=== PATIENT | male | born 1945 | race Caucasian/White ===

== ENCOUNTER 2017-11-04 12:15 | Emergency (ER) | payer MEDICARE ==
[2017-11-04 12:41] LABS: #Lymphocytes 1.3 thou/uL (1.20-3.40); #Monocytes 0.7 thou/uL (0.11-0.59); #Neutrophils 7.6 thou/uL (1.40-6.50); %Basophils 0.5 % (0.0-1.0); %Eosinophils 0.4 % (0.0-10.0); %Lymphocytes 13.2 % (21.0-51.0); Hemoglobin 13.8 g/dL (14.0-18.0); Mean Corpuscular HGB CONC 33.3 g/dL (32.0-36.0); Mean Corpuscular Hemoglobin 30.5 pg (27.0-31.0); Mean Corpuscular Volume 91.7 fl (80.0-94.0); Mean Platelet Volume 7.9 fL (7.4-10.4); Platelet Count 205 thou/uL (130-400); RBC Distribution Width 12.1 % (11.5-14.5); Red Blood Cell (RBC) Count 4.54 mill/uL (4.70-6.10); White Blood Cell (WBC) Count 9.6 thou/uL (4.8-10.8)
[2017-11-04] MEDS ORDERED: Ondansetron HCl/PF 4 MG/2 ML Vial ONE (12:53)
[2017-11-04 13:06] LABS: ALT (SGPT) 14 U/L (8-55); AST (SGOT) 12 U/L (5-34); Albumin 4.4 g/dL (3.4-4.8); Alkaline Phosphatase 68 U/L (40-150); Anion Gap 13 mmol/L (10-20); BUN (Urea Nitrogen) 25 mg/dL (8.4-25.7); Bilirubin, Total 0.3 mg/dL (0.2-1.2); CK (CPK) 66 U/L (30-200); Calc. Creatinine Clearance 0 mL/min (70-130); Calcium 10.3 mg/dL (7.8-10.44); Carbon Dioxide 18 mmol/L (23-31); Chloride 110 mmol/L (98-107); Estimated GFR-MDRD 65; Globulin 3.3 g/dL (2.4-3.5); Glucose 209 mg/dL (80-115); Lipase 27 U/L (8-78); Potassium 4.2 mmol/L (3.5-5.1); Protein, Total 7.7 g/dL (5.8-8.1); Sodium 137 mmol/L (136-145); Troponin I Less than 0.010 ng/mL (< 0.028)
[2017-11-04 13:14] LABS: Clarity Turbid (Clear); Specific Gravity, Urine 1.015 (1.005-1.030)
[2017-11-04 13:15] LABS: Bilirubin Negative (Negative); Blood, Urine Moderate (Negative); Glucose, Urine (Dipstick) Negative (Negative); Leukocyte Large (Negative); Nitrite Positive (Negative); Protein, Urine (Dipstick) 100 mg/dL (Neg-Trace); Urobilinogen 0.2 mg/dL (0.2-1.0)
[2017-11-04 13:21] LABS: Bacteria/HPF 3+ HPF (None Seen); Hyaline Casts/LPF NONE SEEN LPF (0-3 Hyaline); Squamous Epithelial 0-3 HPF (0-3)
--- NOTE | 2017-11-04 14:01 | ULT ---
RIGHT UPPER QUADRANT ULTRASOUND: Date: 11/04/17 HISTORY: Nausea and vomiting. FINDINGS: The liver demonstrates homogeneous echotexture without focal mass or intrahepatic ductal dilatation. No gallstones, gallbladder wall thickening, or pericholecystic fluid is seen. The common duct measure s 4.0 mm in diameter. The pancreas is not well visualized due to overlying bowel gas. The right kidne y measures 12.2 cm in length with mild hydronephrosis. No free fluid is seen in Morison's pouch. IMPRESSION: 1. No evidence of cholelithiasis. 2. Mild right-sided hydronephrosis. POS: [facility]
--- NOTE | 2017-11-04 14:59 | CT ---
CT ABDOMEN AND PELVIS NONCONTRAST: Date: 11/04/17 HISTORY: Flank pain. FINDINGS: No comparison. Severe distention of the left renal collecting system and moderate distention of the proximal to mid ureter is apparent with thickening of the proximal ureteral wall and subtle stranding of the adjacent fat. Distal ureter is decompressed and not well visualized or localized. There is moderate to severe distention of the right renal collecting system and UPJ. The right ureter is again moderately disten ded. Posterior and superior to the urinary bladder is a large, lobular fluid collection apparently co nnected to the bladder. It measures up to 6.6 cm width x 4.4 cm depth x 2.4 cm length. Other lobulati ons projecting from the right side of the urinary bladder have the appearance of diverticula. No stones are visible within the urinary system. Lack of contrast limits evaluation for other abnormalities. Emphysematous changes are apparent at the lung bases. Calcification within the arterial structures. Postoperative changes of the bowel are yessica arent. Hemostasis clips are noted at the dependent portion of the pelvis. IMPRESSION: 1. Bilateral hydroureteronephrosis with nonvisualization of the presumably decompressed distal urete rs. Point of transition of caliber of the ureters is not evident. No stones are visible. Abnormality of the urinary bladder may be related to prior surgery or extensive diverticula from urinary bladder outlet obstruction. Please consider urologic evaluation. 2. Stranding adjacent to the left kidney and proximal left ureter may reflect inflammatory process o r be related to the obstruction. Clinical correlation regarding other signs and symptoms of left pyel onephritis is required. 3. Atherosclerosis. POS: [facility]
== END 2017-11-04 14:42 ==
LOC: ERS 12:15
DX: R10.11 Right upper quadrant pain (principal); R10.31 Right lower quadrant pain; R11.2 Nausea with vomiting, unspecified; E11.9 Type 2 diabetes mellitus without complications; J45.909 Unspecified asthma, uncomplicated; Z85.51 Personal history of malignant neoplasm of bladder
CPT/HCPCS: 36415; 74176; 76705; 80053; 81003; 81015; 82550; 82553; 83690; 84484; 85025; 87040; 87077; 87086; 87186; 93005; 96361; 96374; 96375; 96376; J0696; J2270; J2405

== ENCOUNTER 2018-03-07 10:09 | Outpatient (CLI) | payer MEDICARE ==
--- NOTE | 2018-03-07 14:34 | NM ---
RADIONUCLIDE DIURETIC RENOGRAM: HISTORY: Hydronephrosis. RADIOPHARMACEUTICAL: 8 mCi Technetium 99m-MAG3 injected intravenously. DIURETIC: 40 mg IV Lasix administered 15 minutes prior to the administration of the radiopharmaceutical. FINDINGS: There is slow and decreased uptake by the left kidney compared to the right. Tracer excretion is not ed in the ureters bilaterally and the urinary bladder at slower tracer excretion on the left compared to the right. The differential function measures 62% on the right and 38% on the left. IMPRESSION: 1. No evidence of high-grade obstruction. 2. Decreased flow and function of the left kidney compared to the right. POS: [facility]
== END 2018-03-07 10:10 | disposition home or self-care (01) ==
LOC: NM 10:09
PROVIDERS: ATTEND Urology
DX: N13.39 Other hydronephrosis (principal); R94.4 Abnormal results of kidney function studies
CPT/HCPCS: 78708; A4641; A9562

== ENCOUNTER 2018-06-19 11:02 | Outpatient (CLI) | payer MEDICARE ==
--- NOTE | 2018-06-19 13:24 | RAD ---
CHEST TWO VIEWS: History: Bladder cancer. FINDINGS: Heart size is within normal limits. There are atherosclerotic changes of the aorta. Lungs are clear o f any infiltrative process. There is linear scarring present. Bones appear slightly demineralized. Th ere are arthritic changes of the spine. No pulmonary nodules. IMPRESSION: No active intrathoracic disease. POS: [facility]
--- NOTE | 2018-06-19 13:27 | CT ---
CT OF ABDOMEN AND PELVIS PERFORMED WITHOUT CONTRAST ENHANCEMENT: HISTORY: History of bladder cancer. Bilateral flank pain. COMPARISON: A 11/04/2017 study. FINDINGS: The lung bases show some linear change within the left base consistent with some scar. No pulmonary nodules. The liver, spleen, pancreas, and gallbladder regions appear unremarkable given the limitations of a n oncontrast study. Right and left adrenal glands are normal in appearance. Right and left kidneys ar e normal in size. There is some mild left-sided hydronephrosis significantly improved as compared to the prior examination. There is very minimal dilatation of the right collecting system. On the lef t side, there is some periureteral fat stranding along the proximal left ureter. The course of the u reter is difficult to follow but appears to have crossed at the right of midline and what appear to b e changes related to neobladder. I do not see any evidence for any type of obstructing calculus. Th ere is no significant periaortic or mesenteric adenopathy. CT OF PELVIS PERFORMED WITHOUT CONTRAST ENHANCEMENT: Postoperative changes in the bladder region are noted. No adenopathy, mass, or free fluid. IMPRESSION: Mild to moderate left-sided hydronephrosis with minimal dilatation of the right collecting system. T he left ureter is slightly dilated proximally. It appears to cross to the right of midline related t o postop change. I do not see any signs of any ureteral calculus. The degree of dilatation is signi ficantly improved as compared to the previous study. POS: [facility]
== END 2018-06-19 11:03 | disposition home or self-care (01) ==
LOC: BICCT 11:02
PROVIDERS: ATTEND Urology
DX: Z08 Encounter for follow-up examination after completed treatment for malignant neoplasm (principal); N13.30 Unspecified hydronephrosis; N28.89 Other specified disorders of kidney and ureter; Z85.51 Personal history of malignant neoplasm of bladder
CPT/HCPCS: 71046; 74176

== ENCOUNTER 2021-08-25 00:16 | Inpatient (IN) | payer MEDICARE ==
[2021-08-25 02:06] VITALS: BMI 32.3
[2021-08-25] MEDS ORDERED: Ondansetron PF 4 MG/2 ML Vial IVP PRN (02:37)
[2021-08-25] MEDS ORDERED: Dextrose 50% Abboject 50 ML SYRINGE SLOW IVP PRN (02:37)
[2021-08-25] MEDS ORDERED: Ondansetron ODT 4 MG TAB PO PRN (02:37)
[2021-08-25] MEDS ORDERED: Dextrose 5% in Water 1,000 ML IV PRN (02:37)
[2021-08-25] MEDS ORDERED: Electrolyte Replacement Protocol 1 EACH FS PRN (03:30)
[2021-08-25] MEDS: Sodium Chloride 0.9% 1,000 ML IV SCH ×2 (04:20→14:30)
[2021-08-25 05:45] LABS: Hemoglobin 11.9 g/dL (14.0-18.0); Mean Corpuscular HGB CONC 32.3 g/dL (32.0-36.0); Mean Corpuscular Hemoglobin 30.1 pg (27.0-31.0); Mean Corpuscular Volume 93.3 fL (78.0-98.0); Mean Platelet Volume 8.1 fL (7.4-10.4); Platelet Count 209 thou/uL (130-400); Red Blood Cell (RBC) Count 3.95 mill/uL (4.70-6.10); White Blood Cell (WBC) Count 8.8 thou/uL (4.8-10.8)
[2021-08-25] MEDS ORDERED: Morphine 4 MG/ML VIAL SLOW IVP PRN (05:47)
[2021-08-25 06:04] LABS: Anion Gap 14 mmol/L (10-20); BUN (Urea Nitrogen) 85 mg/dL (8.4-25.7); Calc. Creatinine Clearance 38 mL/min (70-130); Calcium 9.8 mg/dL (7.8-10.44); Carbon Dioxide 13 mmol/L (23-31); Chloride 111 mmol/L (98-107); Glucose 227 mg/dL (83-110); Magnesium 1.7 mg/dL (1.6-2.6); Potassium 5.1 mmol/L (3.5-5.1); Sodium 133 mmol/L (136-145)
[2021-08-25] MEDS ORDERED: Magnesium 2 GM/50 ML 2 GM in Premix Bag 1 BAG IVPB SCH (07:00)
[2021-08-25 08:19] LABS: Band 12 % (5-11); Eosinophils 1 % (0-10); Lymphocytes 16 % (21-51); MDiff Complete? YES; Monocytes 10 % (0-10); Neutrophil 61 % (42-75); Polychromasia SLIGHT = 2-3 cells (100X) (0-2/hpf)
[2021-08-25] MEDS: Lantus 1000 UNITS/10 ML VIAL SC SCH (09:02)
[2021-08-25] MEDS ORDERED: Meropenem 1 GM in Sodium Chloride 0.9% 100 ML IVPB SCH ×2 (18:00→22:00)
[2021-08-26] MEDS: Sodium Chloride 0.9% 1,000 ML IV SCH ×3 (00:34→20:20)
[2021-08-26] MEDS: Meropenem 1 GM in Sodium Chloride 0.9% 100 ML IVPB SCH ×2 (01:06→14:01)
[2021-08-26] MEDS: HumaLOG 300 UNITS/3 ML VIAL SC PRN ×3 (05:41→17:43)
[2021-08-26] MEDS ORDERED: Acetaminophen 325 MG TAB PO PRN (06:05)
[2021-08-26] MEDS: Lantus 1000 UNITS/10 ML VIAL SC SCH (09:07)
[2021-08-26 09:28] LABS: Anion Gap 11 mmol/L (10-20); BUN (Urea Nitrogen) 62 mg/dL (8.4-25.7); Calc. Creatinine Clearance 48 mL/min (70-130); Calcium 9.9 mg/dL (7.8-10.44); Carbon Dioxide 16 mmol/L (23-31); Chloride 117 mmol/L (98-107); Glucose 295 mg/dL (83-110); Potassium 5.1 mmol/L (3.5-5.1); Sodium 139 mmol/L (136-145)
[2021-08-27] MEDS: Meropenem 1 GM in Sodium Chloride 0.9% 100 ML IVPB SCH ×2 (01:05→13:03)
[2021-08-27] MEDS: HumaLOG 300 UNITS/3 ML VIAL SC PRN ×4 (05:09→20:13)
[2021-08-27] MEDS: Sodium Chloride 0.9% 1,000 ML IV SCH ×2 (05:11→21:19)
[2021-08-27] MEDS: Lantus 1000 UNITS/10 ML VIAL SC SCH (08:42)
[2021-08-27 08:43] LABS: Anion Gap 14 mmol/L (10-20); BUN (Urea Nitrogen) 43 mg/dL (8.4-25.7); Calc. Creatinine Clearance 60 mL/min (70-130); Calcium 9.7 mg/dL (7.8-10.44); Carbon Dioxide 13 mmol/L (23-31); Chloride 118 mmol/L (98-107); Glucose 257 mg/dL (83-110); Potassium 4.7 mmol/L (3.5-5.1); Sodium 140 mmol/L (136-145)
[2021-08-28] MEDS: HumaLOG 300 UNITS/3 ML VIAL SC PRN ×4 (00:57→15:46)
[2021-08-28] MEDS: Sodium Chloride 0.9% 1,000 ML IV SCH ×2 (00:57→08:39)
[2021-08-28] MEDS: Meropenem 1 GM in Sodium Chloride 0.9% 100 ML IVPB SCH ×3 (01:06→14:32)
[2021-08-28] MEDS: Lantus 1000 UNITS/10 ML VIAL SC SCH (08:38)
[2021-08-28 11:54] LABS: Anion Gap 12 mmol/L (10-20); BUN (Urea Nitrogen) 36 mg/dL (8.4-25.7); Calc. Creatinine Clearance 68 mL/min (70-130); Calcium 9.1 mg/dL (7.8-10.44); Carbon Dioxide 16 mmol/L (23-31); Chloride 112 mmol/L (98-107); Glucose 430 mg/dL (83-110); Potassium 4.4 mmol/L (3.5-5.1); Sodium 136 mmol/L (136-145)
[2021-08-28] MEDS ORDERED: Amoxicillin/Potassium Clav 875 MG TAB PO SCH (14:00)
[2021-08-28 16:16] VITALS: BP 159/75; TEMP 97.4
== END 2021-08-28 16:00 | disposition home or self-care (01) | DRG 690 ==
LOC: T4-A 01:56
PROVIDERS: ADMIT Student in an Organized Health Care Education/Training Program; ATTEND Internal Medicine
DX: N13.6 Pyonephrosis (principal); E11.9 Type 2 diabetes mellitus without complications; N17.9 Acute kidney failure, unspecified; I10 Essential (primary) hypertension; E87.6 Hypokalemia; B96.20 Unspecified Escherichia coli [E. coli] as the cause of diseases classified elsewhere; J45.909 Unspecified asthma, uncomplicated; Z88.1 Allergy status to other antibiotic agents; Z88.8 Allergy status to other drugs, medicaments and biological substances; Z79.01 Long term (current) use of anticoagulants; Z79.4 Long term (current) use of insulin; Z79.899 Other long term (current) drug therapy; Z85.51 Personal history of malignant neoplasm of bladder; Z86.16 Personal history of COVID-19; Z90.89 Acquired absence of other organs; Z98.890 Other specified postprocedural states
CPT/HCPCS: 36415; 36416; 80048; 83735; 85025; 87040; J1815; J2185; J3490; J7050